=== PATIENT | male | born 1975 | race Caucasian/White ===

== ENCOUNTER → 2018-09-19 | Outpatient (CLI) | payer BC ==
--- NOTE | 2018-09-20 07:19 | US ---
EXAMINATION TYPE: US groin LT DATE OF EXAM: 09/19/2018 COMPARISON: NONE CLINICAL HISTORY: Left inguinal hernia K40.90. Patient feels pain right groin. Dr felt possible left groin hernia. The left groin was assessed with and without valsalva, there is no ultrasound evidence of hernia. The right groin was scanned for comparison purposes, with and without valsalva, there is no ultrasound e vidence for hernia. Limited scanning is performed. IMPRESSION: Hernia is not evident on ultrasound.
== END | disposition home or self-care (01) ==
LOC: RADUSWWP 16:51
PROVIDERS: ATTEND Family Medicine
DX: K40.90 Unilateral inguinal hernia, without obstruction or gangrene, not specified as recurrent (principal)

== ENCOUNTER → 2019-07-11 | Outpatient (CLI) | payer BC ==
--- NOTE | 2019-07-11 16:38 | US ---
EXAMINATION TYPE: US kidneys/renal and bladder DATE OF EXAM: 07/11/2019 COMPARISON: NONE CLINICAL HISTORY: R31.9 Hematuria. microscopic hematuria, no symptoms EXAM MEASUREMENTS: Right Kidney: 10.4 x 5.3 x 6.2cm Left Kidney: 10.4 x 4.1 x 5.3cm Right Kidney: No hydronephrosis or masses seen Left Kidney: No hydronephrosis or masses seen Bladder: wnl Bilateral Jets seen: yes IMPRESSION: 1. Normal renal ultrasound.
== END | disposition home or self-care (01) ==
LOC: RADUSMAIN 15:57
PROVIDERS: ATTEND Family Medicine
DX: R31.9 Hematuria, unspecified (principal)
CPT/HCPCS: 76770

== ENCOUNTER 2023-02-28 09:55 | Day surgery (SDC) | payer BC ==
[~2023-02-28 09:55] MED LIST: LACTATED RINGERS 1,000 ML IV SCH; LIDOCAINE 1% (10MG/ML) FOR IV START INTRADERMA PRN
[2023-02-28 10:31] VITALS: RESP 16; TEMP 97
[2023-02-28] MEDS ORDERED: PROPOFOL 10 MG/ML 20 ML VIAL IV ONE (10:34)
--- NOTE | 2023-02-28 10:49 | P.PCN ---
Date of Procedure: 02/28/23 Procedure(s) Performed: BRIEF HISTORY: Patient is a 48-year-old pleasant white male male scheduled for an elective colonoscopy as a part of screening for colon cancer. PROCEDURE PERFORMED: Colonoscopy with snare polypectomy. PREOPERATIVE DIAGNOSIS: Screening for colon cancer. IV sedation per Anesthesia. PROCEDURE: After informed consent was obtained, the patient, was brought into the endoscopy unit. IV sedation was administered by Anesthesia under continuous monitoring. Digital rectal examination was normal. Initially the Olympus CF-160 flexible video colonoscope was then inserted in the rectum, gradually advanced into the cecum without any difficulty. Careful examination was performed as the scope was gradually being withdrawn. Ileocecal valve and the appendiceal orifice were visualized and appeared normal. Prep was excellent. Mucosa of the cecum, normal. Ascending colon there was a 1 cm broad-based polyp removed by snare polypectomy. Rest of the ascending colon, transverse colon, descending colon, sigmoid colon, and rectum appeared normal. Retroflexion was performed in the rectum and no lesions were seen. The patient tolerated the procedure well. IMPRESSION: 1 cm ascending colon polyp status post polypectomy Rest of the colon appeared normal RECOMMENDATIONS: Findings of this examination were discussed with the patient as well as his family. He was advised to follow with the biopsy results. If the biopsy results and he can have a repeat screening in 3 years..
[2023-02-28 11:30] VITALS: BP 104/75; PULSE 69
== END 2023-02-28 11:36 | disposition home or self-care (01) ==
LOC: ORWHC2ENDO 09:55
PROVIDERS: ATTEND Internal Medicine Gastroenterology
DX: Z12.11 Encounter for screening for malignant neoplasm of colon (principal); K63.5 Polyp of colon; I10 Essential (primary) hypertension; Z79.899 Other long term (current) drug therapy
CPT/HCPCS: 88305; 45385; J2704